=== PATIENT | female | born 1955 | race Caucasian/White ===

== ENCOUNTER 2021-08-26 09:07 | Outpatient (CLI) | payer MEDICARE, MEDICAID | END 2021-08-26 09:08 | disposition home or self-care (01) | LOC: CSHMAMMO 09:07 | PROVIDERS: ATTEND Internal Medicine | DX: Z12.31 Encounter for screening mammogram for malignant neoplasm of breast (principal) | CPT/HCPCS: 77063; 77067 ==

== ENCOUNTER 2022-03-26 08:54 | Emergency (ER) | payer OTHER, MEDICAID ==
[~2022-03-26 08:54] MED LIST: Iopamidol 370 76% 100 ML VIAL ONE
[2022-03-26] MEDS ORDERED: Morphine 4 MG/ML VIAL ONE (09:33)
[2022-03-26] MEDS ORDERED: Ondansetron PF 4 MG/2 ML Vial ONE (09:34)
[2022-03-26 09:38] LABS: #Basophils 0.1 10x3/uL (0.0-0.2); #Eosinphils 0.3 10x3/uL (0.0-0.5); #Neutrophils 7.7 10x3/uL (1.5-8.4); %Basophils 0.9 % (0.0-2.0); %Eosinophils 2.4 % (0.0-6.0); %Lymphocytes 19.2 % (18.0-47.0); %Monocytes 8.3 % (0.0-10.0); %Neutrophils 67.4 % (40.0-75.0); Hemoglobin 14.2 g/dL (12.0-15.5); Mean Corpuscular Hemoglobin 30.6 pg (27.0-33.0); Mean Corpuscular Volume 90.1 fl (81.6-98.3); Mean Platelet Volume 11.1 fl (7.4-10.4); Platelet Count 232 10x3/uL (150-450); RBC Distribution Width 13.8 % (11.5-14.5); Red Blood Cell (RBC) Count 4.64 10x6/uL (3.90-5.03); White Blood Cell (WBC) Count 11.4 10x3/uL (3.5-10.5)
[2022-03-26 09:45] LABS: ALT (SGPT) 13 U/L (8-55); AST (SGOT) 12 U/L (5-34); Albumin 3.9 g/dL (3.4-4.8); Alkaline Phosphatase 82 U/L (40-110); Anion Gap 14 mmol/L (10-20); BUN (Urea Nitrogen) 17 mg/dL (9.8-20.1); Bilirubin, Total 0.2 mg/dL (0.2-1.2); Calc. Creatinine Clearance 0 mL/min (70-130); Calcium 9.3 mg/dL (7.8-10.44); Carbon Dioxide 25 mmol/L (23-31); Chloride 104 mmol/L (98-107); Estimated GFR 85; Globulin 2.6 g/dL (2.4-3.5); Glucose 90 mg/dL (80-115); Lipase 22 U/L (8-78); Potassium 4.2 mmol/L (3.5-5.1); Protein, Total 6.5 g/dL (5.8-8.1); Sodium 139 mmol/L (136-145)
[2022-03-26] MEDS ORDERED: diphenhydrAMINE 50 MG/ML VIAL ONE (10:16)
[2022-03-26 11:02] LABS: Bilirubin Neg (Negative); Blood, Urine 10 (Negative); Clarity Clear (Clear); Glucose, Urine (Dipstick) Normal (Negative); Ketone, Urine Negative (Negative); Leukocyte Negative (Negative); Nitrite Negative (Negative); Protein, Urine (Dipstick) Negative (Neg-Trace); Urobilinogen Normal mg/dL (Less than 2)
[2022-03-26 11:14] LABS: Bacteria/HPF Rare-Few HPF (None Seen); RBC/HPF 0-3 HPF (0-3); Squamous Epithelial 0-3 HPF (0-3); WBC/HPF 0-3 HPF (0-3)
== END 2022-03-26 14:15 | disposition home or self-care (01) ==
LOC: CSHERS 08:54
DX: K43.9 Ventral hernia without obstruction or gangrene (principal); I10 Essential (primary) hypertension; J44.9 Chronic obstructive pulmonary disease, unspecified; F17.210 Nicotine dependence, cigarettes, uncomplicated; Z79.899 Other long term (current) drug therapy
CPT/HCPCS: 74177; 80053; 81003; 81015; 83690; 85025; 93005; 96361; 96374; 96375; J1200; J2270; J2405; Q9967

== ENCOUNTER 2022-09-22 13:36 | Outpatient (CLI) | payer OTHER, MEDICAID | END 2022-09-22 13:37 | disposition home or self-care (01) | LOC: CSHMAMMO 13:36 | PROVIDERS: ATTEND Family Medicine | DX: Z12.31 Encounter for screening mammogram for malignant neoplasm of breast (principal); Z13.820 Encounter for screening for osteoporosis; M81.0 Age-related osteoporosis without current pathological fracture | CPT/HCPCS: 77063; 77067; 77080 ==

== ENCOUNTER 2022-10-13 10:52 | Emergency (ER) | payer OTHER, MEDICAID ==
[2022-10-13 11:55] LABS: #Basophils 0.1 10x3/uL (0.0-0.2); #Eosinphils 0.2 10x3/uL (0.0-0.5); #Monocytes 0.8 10x3/uL (0.0-1.1); #Neutrophils 6.2 10x3/uL (1.5-8.4); %Basophils 0.7 % (0.0-2.0); %Lymphocytes 24.6 % (18.0-47.0); %Monocytes 8.4 % (0.0-10.0); %Neutrophils 63.6 % (40.0-75.0); Hemoglobin 14.9 g/dL (12.0-15.5); INR-International Normal Ratio 0.9; Mean Corpuscular HGB CONC 33.8 g/dL (32.0-36.0); Mean Corpuscular Hemoglobin 30.3 pg (27.0-33.0); Mean Corpuscular Volume 89.6 fl (81.6-98.3); Mean Platelet Volume 11.6 fl (7.4-10.4); PTT 26.5 sec (22.0-33.0); Platelet Count 210 10x3/uL (150-450); Prothrombin Time 10.1 sec (9.5-12.1); RBC Distribution Width 13.3 % (11.5-14.5); Red Blood Cell (RBC) Count 4.92 10x6/uL (3.90-5.03); White Blood Cell (WBC) Count 9.8 10x3/uL (3.5-10.5)
[2022-10-13 13:31] LABS: ALT (SGPT) 15 U/L (8-55); AST (SGOT) 18 U/L (5-34); Alkaline Phosphatase 66 U/L (40-110); Anion Gap 13 mmol/L (10-20); BUN (Urea Nitrogen) 18 mg/dL (9.8-20.1); Bilirubin, Total 0.4 mg/dL (0.2-1.2); CK (CPK) 101 U/L (29-168); Calc. Creatinine Clearance 0 mL/min (70-130); Calcium 9.2 mg/dL (7.8-10.44); Carbon Dioxide 23 mmol/L (23-31); Chloride 107 mmol/L (98-107); Estimated GFR 78; Globulin 2.6 g/dL (2.4-3.5); Glucose 93 mg/dL (80-115); Protein, Total 6.6 g/dL (5.8-8.1); Sodium 139 mmol/L (136-145)
[2022-10-13] MEDS ORDERED: Ibuprofen 200 MG TAB ONE (13:57)
== END 2022-10-13 14:06 | disposition home or self-care (01) ==
LOC: CSHERS 10:52
DX: S60.212A Contusion of left wrist, initial encounter (principal); S60.211A Contusion of right wrist, initial encounter; S70.02XA Contusion of left hip, initial encounter; S40.012A Contusion of left shoulder, initial encounter; I10 Essential (primary) hypertension; F17.210 Nicotine dependence, cigarettes, uncomplicated; W18.30XA Fall on same level, unspecified, initial encounter
CPT/HCPCS: 70450; 71045; 72125; 72170; 80053; 82550; 84484; 85025; 85610; 85730; 93005

== ENCOUNTER 2022-10-19 07:06 | Emergency (ER) | payer OTHER, MEDICAID ==
[2022-10-19] MEDS ORDERED: Morphine 4 MG/ML VIAL ONE (07:38)
[2022-10-19] MEDS ORDERED: Ondansetron PF 4 MG/2 ML Vial ONE (07:38)
[2022-10-19 08:37] LABS: #Eosinphils 0.2 10x3/uL (0.0-0.5); #Monocytes 0.7 10x3/uL (0.0-1.1); #Neutrophils 5.6 10x3/uL (1.5-8.4); %Basophils 0.5 % (0.0-2.0); %Eosinophils 1.8 % (0.0-6.0); %Monocytes 8.3 % (0.0-10.0); %Neutrophils 67.9 % (40.0-75.0); ALT (SGPT) 40 U/L (8-55); AST (SGOT) 25 U/L (5-34); Albumin 4.1 g/dL (3.4-4.8); Alkaline Phosphatase 67 U/L (40-110); Anion Gap 14 mmol/L (10-20); BUN (Urea Nitrogen) 8 mg/dL (9.8-20.1); Bilirubin, Total 0.5 mg/dL (0.2-1.2); Calc. Creatinine Clearance 0 mL/min (70-130); Calcium 9.4 mg/dL (7.8-10.44); Carbon Dioxide 25 mmol/L (23-31); Chloride 104 mmol/L (98-107); Estimated GFR 77; Globulin 2.8 g/dL (2.4-3.5); Glucose 100 mg/dL (80-115); Hemoglobin 14.9 g/dL (12.0-15.5); Mean Corpuscular HGB CONC 33.7 g/dL (32.0-36.0); Mean Corpuscular Hemoglobin 30.3 pg (27.0-33.0); Mean Platelet Volume 11.8 fl (7.4-10.4); Platelet Count 201 10x3/uL (150-450); Potassium 4.1 mmol/L (3.5-5.1); Protein, Total 6.9 g/dL (5.8-8.1); RBC Distribution Width 13.4 % (11.5-14.5); Red Blood Cell (RBC) Count 4.91 10x6/uL (3.90-5.03); Sodium 139 mmol/L (136-145); White Blood Cell (WBC) Count 8.2 10x3/uL (3.5-10.5)
[2022-10-19 10:22] LABS: Bilirubin Neg (Negative); Blood, Urine 10 (Negative); Clarity Clear (Clear); Glucose, Urine (Dipstick) Normal (Negative); Ketone, Urine Negative (Negative); Leukocyte Negative (Negative); Nitrite Negative (Negative); Protein, Urine (Dipstick) Negative (Neg-Trace); Specific Gravity, Urine 1.005 (1.005-1.030); Urobilinogen Normal mg/dL (Less than 2)
[2022-10-19 10:40] LABS: Bacteria/HPF None Seen HPF (None Seen); RBC/HPF 0-3 HPF (0-3); Squamous Epithelial 0-3 HPF (0-3); WBC/HPF None Seen HPF (0-3)
== END 2022-10-19 11:45 | disposition home or self-care (01) ==
LOC: CSHERS 07:06
DX: M54.9 Dorsalgia, unspecified (principal); R31.9 Hematuria, unspecified; I10 Essential (primary) hypertension; J44.9 Chronic obstructive pulmonary disease, unspecified; F17.210 Nicotine dependence, cigarettes, uncomplicated
CPT/HCPCS: 74176; 80053; 81003; 81015; 85025; 96374; 96375; J2270; J2405

== ENCOUNTER 2023-01-04 10:40 | Outpatient (CLI) | payer OTHER, MEDICAID | END 2023-01-04 10:41 | disposition home or self-care (01) | LOC: CSHRAD 10:40 | PROVIDERS: ATTEND Family Medicine | DX: M25.552 Pain in left hip (principal) ==

== ENCOUNTER 2023-05-20 05:43 | Emergency (ER) | payer OTHER, MEDICAID ==
[2023-05-20 06:44] LABS: Bilirubin Neg (Negative); Blood, Urine 10 (Negative); Clarity Clear (Clear); Glucose, Urine (Dipstick) Normal (Negative); Ketone, Urine Negative (Negative); Leukocyte Negative (Negative); Nitrite Negative (Negative); Protein, Urine (Dipstick) Negative (Neg-Trace); Urobilinogen Normal mg/dL (Less than 2); pH, Urine 6.5 (5.0-9.0)
[2023-05-20] MEDS ORDERED: Morphine 4 MG/ML VIAL ONE ×2 (06:46→08:17)
[2023-05-20 06:52] LABS: Bacteria/HPF None Seen HPF (None Seen); CAUTI Indications for Culture Dysuria,urgency,freq; RBC/HPF 0-3 HPF (0-3); Squamous Epithelial 0-3 HPF (0-3); WBC/HPF 0-3 HPF (0-3)
[2023-05-20 06:53] LABS: Urine Culture Reflex No No
[2023-05-20 07:01] LABS: #Basophils 0.1 10x3/uL (0.0-0.2); #Eosinphils 0.2 10x3/uL (0.0-0.5); #Monocytes 0.9 10x3/uL (0.0-1.1); #Neutrophils 8.7 10x3/uL (1.5-8.4); %Basophils 0.9 % (0.0-2.0); %Eosinophils 1.5 % (0.0-6.0); %Lymphocytes 15.4 % (18.0-47.0); %Monocytes 7.5 % (0.0-10.0); %Neutrophils 73.7 % (40.0-75.0); Hematocrit 47.9 % (34.9-44.5); Hemoglobin 15.6 g/dL (12.0-15.5); Mean Corpuscular HGB CONC 32.6 g/dL (32.0-36.0); Mean Corpuscular Hemoglobin 30.2 pg (27.0-33.0); Mean Corpuscular Volume 92.8 fl (81.6-98.3); Mean Platelet Volume 11.5 fl (7.4-10.4); Platelet Count 234 10x3/uL (150-450); RBC Distribution Width 13.4 % (11.5-14.5); Red Blood Cell (RBC) Count 5.16 10x6/uL (3.90-5.03); White Blood Cell (WBC) Count 11.8 10x3/uL (3.5-10.5)
[2023-05-20 07:16] LABS: ALT (SGPT) 9 U/L (8-55); AST (SGOT) 12 U/L (5-34); Albumin 4.5 g/dL (3.4-4.8); Alkaline Phosphatase 89 U/L (40-110); Anion Gap 16 mmol/L (10-20); BUN (Urea Nitrogen) 12 mg/dL (9.8-20.1); Bilirubin, Total 0.3 mg/dL (0.2-1.2); Calc. Creatinine Clearance 0 mL/min (70-130); Calcium 9.3 mg/dL (7.8-10.44); Carbon Dioxide 23 mmol/L (23-31); Chloride 105 mmol/L (98-107); Estimated GFR 79; Globulin 2.9 g/dL (2.4-3.5); Glucose 111 mg/dL (80-115); Lipase 15 U/L (8-78); Potassium 4.4 mmol/L (3.5-5.1); Protein, Total 7.4 g/dL (5.8-8.1); Sodium 140 mmol/L (136-145)
[2023-05-20] MEDS ORDERED: Ondansetron PF 4 MG/2 ML Vial ONE (08:18)
[2023-05-20] MEDS ORDERED: Iopamidol 300 61% 100 ML VIAL FS ONE (12:06)
== END 2023-05-20 09:42 | disposition home or self-care (01) ==
LOC: CSHERS 05:43
DX: R10.30 Lower abdominal pain, unspecified (principal); S76.019A Strain of muscle, fascia and tendon of unspecified hip, initial encounter; I10 Essential (primary) hypertension; J44.9 Chronic obstructive pulmonary disease, unspecified; F17.210 Nicotine dependence, cigarettes, uncomplicated
CPT/HCPCS: 36415; 74177; 80053; 81001; 83690; 85025; 96374; 96375; 96376; J2270; J2405; Q9967

== ENCOUNTER 2023-06-02 08:32 | Emergency (ER) | payer OTHER, MEDICAID ==
[2023-06-02] MEDS ORDERED: oxyCODONE 5 MG TAB ONE (09:53)
== END 2023-06-02 11:35 | disposition home or self-care (01) ==
LOC: CSHERS 08:32
DX: S42.211A Unspecified displaced fracture of surgical neck of right humerus, initial encounter for closed fracture (principal); F17.210 Nicotine dependence, cigarettes, uncomplicated; I10 Essential (primary) hypertension; J44.9 Chronic obstructive pulmonary disease, unspecified; Z79.899 Other long term (current) drug therapy; W01.0XXA Fall on same level from slipping, tripping and stumbling without subsequent striking against object, initial encounter

== ENCOUNTER 2023-10-11 16:46 | Inpatient (IN) | payer OTHER, MEDICAID ==
[2023-10-11] MEDS ORDERED: Ondansetron PF 4 MG/2 ML Vial ONE ×2 (17:17→17:56)
[2023-10-11] MEDS ORDERED: Acetaminophen 500 MG TAB ONE (17:18)
[2023-10-11] MEDS ORDERED: Ipratropium/Albuterol 3 ML NEB ONE (17:21)
[2023-10-11] MEDS ORDERED: methylPREDNISolone Sod Succ/PF 125 MG/2 ML VIAL ONE (17:21)
[2023-10-11 17:34] LABS: #Basophils 0.1 10x3/uL (0.0-0.2); #Eosinphils 0.1 10x3/uL (0.0-0.5); #Neutrophils 8.9 10x3/uL (1.5-8.4); %Basophils 0.6 % (0.0-2.0); %Eosinophils 0.8 % (0.0-6.0); %Lymphocytes 6.3 % (18.0-47.0); %Monocytes 9.3 % (0.0-10.0); %Neutrophils 81.8 % (40.0-75.0); Hematocrit 44.7 % (34.9-44.5); Hemoglobin 14.8 g/dL (12.0-15.5); Mean Corpuscular HGB CONC 33.1 g/dL (32.0-36.0); Mean Corpuscular Hemoglobin 29.7 pg (27.0-33.0); Mean Corpuscular Volume 89.6 fl (81.6-98.3); Mean Platelet Volume 10.4 fl (7.4-10.4); Platelet Count 241 10x3/uL (150-450); RBC Distribution Width 13.5 % (11.5-14.5); Red Blood Cell (RBC) Count 4.99 10x6/uL (3.90-5.03); White Blood Cell (WBC) Count 10.9 10x3/uL (3.5-10.5)
[2023-10-11 17:45] LABS: ALT (SGPT) 15 U/L (8-55); AST (SGOT) 22 U/L (5-34); Albumin 3.9 g/dL (3.4-4.8); Alkaline Phosphatase 63 U/L (40-110); Anion Gap 15 mmol/L (10-20); BUN (Urea Nitrogen) 10 mg/dL (9.8-20.1); Bilirubin, Total 0.5 mg/dL (0.2-1.2); Calc. Creatinine Clearance 0 mL/min (70-130); Calcium 8.7 mg/dL (7.8-10.44); Carbon Dioxide 27 mmol/L (23-31); Chloride 98 mmol/L (98-107); Estimated GFR 86; Globulin 3.1 g/dL (2.4-3.5); Glucose 120 mg/dL (80-115); Lipase 5 U/L (8-78); Magnesium 1.9 mg/dL (1.6-2.6); Potassium 4.4 mmol/L (3.5-5.1); Sodium 136 mmol/L (136-145)
[2023-10-11 17:47] LABS: Troponin I 0.026 ng/mL (< 0.028)
[2023-10-11] MEDS ORDERED: Magnesium 2 GM/50 ML BAG (IN WATER) ONE (17:56)
[2023-10-11] MEDS ORDERED: Morphine 4 MG/ML VIAL ONE (17:56)
[2023-10-11 18:18] LABS: SARS-CoV-2 NAA Rapid Test Not Detected (NotDetected)
[2023-10-11] MEDS ORDERED: Albuterol 2.5 MG (3 mL) NEB ONE (18:20)
[2023-10-11 18:50] LABS: Actual Bicarbonate (HCO3v) 25.2 mEq/L (22-28); Analyzer IN Cardio CS ER; Base Excess 0.8 mEq/L (-2 - +2); Calcium, Ionized (venous) 1.02 mmol/L (1.16-1.32); Chloride (VBG) 99 mmol/L (98-106); Hematocrit-VBG 44 % (36.0-47.0); Hemoglobin (Hb) 14.8 g/dL (11.7-16.1); Potassium (VBG) 3.66 mmol/L (3.70-5.30); Puncture Site Other Site; RapidComm Collect By LAB; Sodium 135 mmol/L (133-146); pH (venous) 7.422 (7.32-7.43)
[2023-10-11] MEDS ORDERED: Oseltamivir 75 MG CAP PO SCH (19:45)
[2023-10-11 22:11] VITALS: BMI 38.7
[2023-10-11] MEDS ORDERED: Senokot S 8.6-50 MG TAB PO PRN (22:47)
[2023-10-11] MEDS ORDERED: Acetaminophen 325 MG TAB PO PRN (22:47)
[2023-10-11] MEDS ORDERED: VANCOMYCIN 2 GRAM/400 ML BAG IVPB SCH (23:00)
[2023-10-11] MEDS ORDERED: Ipratropium/Albuterol 3 ML NEB NEB SCH (23:00)
[2023-10-11] MEDS ORDERED: Arformoterol 15 MCG/2 ML NEB NEB SCH (23:00)
[2023-10-11] MEDS: HYDROcodone/Acetaminophen 10/325 mg Tablet PO PRN (23:17)
[2023-10-11] MEDS: LevoFLOXacin 750 mg/D5W 750 MG in Premix 1 BAG IVPB SCH (23:18)
[2023-10-11 23:47] LABS: Troponin I Less than 0.010 ng/mL (< 0.028)
[2023-10-12 00:10] LABS: Legionella Urinary Ag Negative (Negative); Strep pneumo Urine Ag NEGATIVE (NEGATIVE)
[2023-10-12] MEDS: VANCOMYCIN 1.75 GM/350 ML BAG 1.75 GM in Premix 1 BAG IVPB SCH ×2 (00:43→13:50)
[2023-10-12 03:31] LABS: #Monocytes 0.2 10x3/uL (0.0-1.1); #Neutrophils 8.5 10x3/uL (1.5-8.4); %Basophils 0.2 % (0.0-2.0); %Lymphocytes 4.3 % (18.0-47.0); %Monocytes 2.1 % (0.0-10.0); %Neutrophils 92.4 % (40.0-75.0); Hematocrit 41.5 % (34.9-44.5); Hemoglobin 13.5 g/dL (12.0-15.5); Mean Corpuscular HGB CONC 32.5 g/dL (32.0-36.0); Mean Corpuscular Hemoglobin 28.9 pg (27.0-33.0); Mean Corpuscular Volume 88.9 fl (81.6-98.3); Mean Platelet Volume 10.8 fl (7.4-10.4); Platelet Count 230 10x3/uL (150-450); RBC Distribution Width 13.6 % (11.5-14.5); Red Blood Cell (RBC) Count 4.67 10x6/uL (3.90-5.03); White Blood Cell (WBC) Count 9.2 10x3/uL (3.5-10.5)
[2023-10-12 03:46] LABS: Anion Gap 15 mmol/L (10-20); BUN (Urea Nitrogen) 10 mg/dL (9.8-20.1); Calc. Creatinine Clearance 134 mL/min (70-130); Calcium 8.6 mg/dL (7.8-10.44); Carbon Dioxide 24 mmol/L (23-31); Chloride 102 mmol/L (98-107); Estimated GFR 94; Glucose 205 mg/dL (80-115); Magnesium 2.3 mg/dL (1.6-2.6); Potassium 3.8 mmol/L (3.5-5.1); Sodium 137 mmol/L (136-145)
[2023-10-12] MEDS: HYDROcodone/Acetaminophen 10/325 mg Tablet PO PRN ×4 (06:45→21:28)
[2023-10-12] MEDS: Ipratropium/Albuterol 3 ML NEB NEB SCH ×4 (07:05→19:55)
[2023-10-12] MEDS: Arformoterol 15 MCG/2 ML NEB NEB SCH ×2 (07:05→19:55)
[2023-10-12] MEDS: Nicotine 21 MG PATCH TD SCH ×2 (09:00)
[2023-10-12] MEDS: Enoxaparin 40 MG (0.4 mL) SYRINGE SC SCH (09:00)
[2023-10-12] MEDS: Polyethylene Glycol 3350 17 GM Packet PO SCH (09:03)
[2023-10-12] MEDS: predniSONE 20 MG TAB PO SCH (09:04)
[2023-10-12] MEDS: DULoxetine 30 MG CAP PO SCH (09:04)
[2023-10-12] MEDS: Oseltamivir 75 MG CAP PO SCH ×2 (09:04→21:30)
[2023-10-12] MEDS: CeleCOXIB 100 MG CAP PO SCH (09:04)
[2023-10-12] MEDS ORDERED: Acetaminophen 500 MG TAB PO PRN (11:58)
[2023-10-12] MEDS: Atorvastatin Calcium 20 MG TAB PO SCH (21:30)
[2023-10-12] MEDS: LevoFLOXacin 750 mg/D5W 750 MG in Premix 1 BAG IVPB SCH (23:57)
[2023-10-13] MEDS: VANCOMYCIN 1.75 GM/350 ML BAG 1.75 GM in Premix 1 BAG IVPB SCH ×2 (01:48→13:06)
[2023-10-13] MEDS: HYDROcodone/Acetaminophen 10/325 mg Tablet PO PRN ×4 (01:49→22:32)
[2023-10-13] MEDS ORDERED: cloNIDine 0.1 MG TAB PO SCH ×2 (02:15→21:00)
[2023-10-13 05:39] LABS: #Monocytes 1.3 10x3/uL (0.0-1.1); %Basophils 0.1 % (0.0-2.0); %Eosinophils 0.1 % (0.0-6.0); %Lymphocytes 8.6 % (18.0-47.0); %Monocytes 8.7 % (0.0-10.0); %Neutrophils 81.4 % (40.0-75.0); Hematocrit 39.9 % (34.9-44.5); Hemoglobin 13.1 g/dL (12.0-15.5); Mean Corpuscular HGB CONC 32.8 g/dL (32.0-36.0); Mean Corpuscular Hemoglobin 29.2 pg (27.0-33.0); Mean Corpuscular Volume 88.9 fl (81.6-98.3); Mean Platelet Volume 10.3 fl (7.4-10.4); Platelet Count 249 10x3/uL (150-450); RBC Distribution Width 13.4 % (11.5-14.5); Red Blood Cell (RBC) Count 4.49 10x6/uL (3.90-5.03); White Blood Cell (WBC) Count 14.8 10x3/uL (3.5-10.5)
[2023-10-13 05:59] LABS: Anion Gap 12 mmol/L (10-20); BUN (Urea Nitrogen) 18 mg/dL (9.8-20.1); Calc. Creatinine Clearance 138 mL/min (70-130); Calcium 8.8 mg/dL (7.8-10.44); Carbon Dioxide 26 mmol/L (23-31); Chloride 101 mmol/L (98-107); Estimated GFR 96; Glucose 120 mg/dL (80-115); Potassium 4.2 mmol/L (3.5-5.1); Sodium 135 mmol/L (136-145)
[2023-10-13] MEDS: Arformoterol 15 MCG/2 ML NEB NEB SCH ×2 (07:30→19:14)
[2023-10-13] MEDS: Ipratropium/Albuterol 3 ML NEB NEB SCH ×4 (07:30→19:07)
[2023-10-13] MEDS: Polyethylene Glycol 3350 17 GM Packet PO SCH (08:58)
[2023-10-13] MEDS: Enoxaparin 40 MG (0.4 mL) SYRINGE SC SCH (08:58)
[2023-10-13] MEDS: predniSONE 20 MG TAB PO SCH (08:58)
[2023-10-13] MEDS: CeleCOXIB 100 MG CAP PO SCH (08:59)
[2023-10-13] MEDS: DULoxetine 30 MG CAP PO SCH (08:59)
[2023-10-13] MEDS: Oseltamivir 75 MG CAP PO SCH ×2 (08:59→22:33)
[2023-10-13] MEDS: Nicotine 21 MG PATCH TD SCH (09:02)
[2023-10-13] MEDS ORDERED: Benzonatate 100 MG CAP PO PRN (09:18)
[2023-10-13] MEDS ORDERED: Morphine 4 MG/ML VIAL SLOW IVP SCH (10:00)
[2023-10-13 12:41] LABS: Vancomycin, Trough 19.7 ug/mL
[2023-10-13] MEDS: Atorvastatin Calcium 20 MG TAB PO SCH (22:32)
[2023-10-13] MEDS ORDERED: Melatonin 3 MG TAB PO SCH (23:00)
[2023-10-13] MEDS ORDERED: HYDROcodone/Acetaminophen 10/325 mg Tablet PO SCH (23:00)
[2023-10-13] MEDS: LevoFLOXacin 750 mg/D5W 750 MG in Premix 1 BAG IVPB SCH (23:47)
[2023-10-14 05:16] LABS: #Basophils 0.1 10x3/uL (0.0-0.2); #Monocytes 0.9 10x3/uL (0.0-1.1); #Neutrophils 7.7 10x3/uL (1.5-8.4); %Basophils 0.5 % (0.0-2.0); %Eosinophils 0.2 % (0.0-6.0); %Lymphocytes 17.7 % (18.0-47.0); %Monocytes 8.5 % (0.0-10.0); %Neutrophils 70.8 % (40.0-75.0); Hematocrit 39.3 % (34.9-44.5); Hemoglobin 13.1 g/dL (12.0-15.5); Mean Corpuscular HGB CONC 33.3 g/dL (32.0-36.0); Mean Corpuscular Hemoglobin 29.2 pg (27.0-33.0); Mean Corpuscular Volume 87.7 fl (81.6-98.3); Mean Platelet Volume 10.3 fl (7.4-10.4); Platelet Count 255 10x3/uL (150-450); RBC Distribution Width 13.4 % (11.5-14.5); Red Blood Cell (RBC) Count 4.48 10x6/uL (3.90-5.03); White Blood Cell (WBC) Count 10.9 10x3/uL (3.5-10.5)
[2023-10-14 05:59] VITALS: BP 183/88; TEMP 98
[2023-10-14] MEDS: Ipratropium/Albuterol 3 ML NEB NEB SCH ×2 (07:10→11:15)
[2023-10-14] MEDS: Arformoterol 15 MCG/2 ML NEB NEB SCH (07:10)
[2023-10-14] MEDS: Polyethylene Glycol 3350 17 GM Packet PO SCH (09:00)
[2023-10-14] MEDS: Oseltamivir 75 MG CAP PO SCH (10:24)
[2023-10-14] MEDS: DULoxetine 30 MG CAP PO SCH (10:24)
[2023-10-14] MEDS: CeleCOXIB 100 MG CAP PO SCH (10:24)
[2023-10-14] MEDS: HYDROcodone/Acetaminophen 10/325 mg Tablet PO PRN (10:24)
[2023-10-14] MEDS: Nicotine 21 MG PATCH TD SCH (10:25)
[2023-10-14] MEDS: Enoxaparin 40 MG (0.4 mL) SYRINGE SC SCH (10:26)
[2023-10-14] MEDS: predniSONE 20 MG TAB PO SCH (10:28)
[2023-10-14] MEDS ORDERED: Metoprolol Tartrate 50 MG TAB PO SCH ×2 (11:00→21:00)
[2023-10-14] MEDS ORDERED: cloNIDine 0.1 MG TAB PO SCH (21:00)
[2023-10-15] MEDS ORDERED: cloNIDine 0.2 MG TAB PO SCH (21:00)
== END 2023-10-14 14:40 | disposition home or self-care (01) | DRG 193 ==
LOC: CSHERS 16:46 → CSHTELE 19:34
PROVIDERS: ADMIT Family Medicine; ATTEND Internal Medicine
PROC: 8E0ZXY6 Isolation (ICD-10-PCS; principal; 2023-10-11)
DX: J10.00 Influenza due to other identified influenza virus with unspecified type of pneumonia (principal); J96.01 Acute respiratory failure with hypoxia; J44.1 Chronic obstructive pulmonary disease with (acute) exacerbation; J44.0 Chronic obstructive pulmonary disease with (acute) lower respiratory infection; I10 Essential (primary) hypertension; G89.29 Other chronic pain; F31.9 Bipolar disorder, unspecified; F43.10 Post-traumatic stress disorder, unspecified; B19.20 Unspecified viral hepatitis C without hepatic coma; F17.210 Nicotine dependence, cigarettes, uncomplicated; E66.9 Obesity, unspecified; G62.9 Polyneuropathy, unspecified; Z90.710 Acquired absence of both cervix and uterus; Z98.890 Other specified postprocedural states; Z90.49 Acquired absence of other specified parts of digestive tract; Z88.8 Allergy status to other drugs, medicaments and biological substances; Z79.51 Long term (current) use of inhaled steroids; Z79.899 Other long term (current) drug therapy; Z68.38 Body mass index [BMI] 38.0-38.9, adult; Z11.52 Encounter for screening for COVID-19
CPT/HCPCS: 36415; 71045; 80048; 80053; 80202; 82805; 83605; 83690; 83735; 83880; 84484; 85025; 87040; 87081; 87449; 87899; 93005; 93306; 94640; 94760; 96374; 96375; 96376; J1650; J1956; J2270; J2405; J2930; J3370; J3475; J7512; J7611; J7620

== ENCOUNTER 2024-02-14 06:54 | Emergency (ER) | payer OTHER ==
[2024-02-14 07:19] LABS: Bilirubin Neg (Negative); Blood, Urine 25 (Negative); Clarity Clear (Clear); Glucose, Urine (Dipstick) Normal (Negative); Ketone, Urine Negative (Negative); Leukocyte Negative (Negative); Nitrite Negative (Negative); Protein, Urine (Dipstick) Negative (Neg-Trace); Urobilinogen Normal mg/dL (Less than 2)
[2024-02-14] MEDS ORDERED: Acetaminophen 500 MG TAB ONE (07:30)
[2024-02-14 07:32] LABS: Bacteria/HPF None Seen HPF (None Seen); CAUTI Indications for Culture Dysuria,urgency,freq; RBC/HPF 0-3 HPF (0-3); Squamous Epithelial None Seen HPF (0-3); WBC/HPF None Seen HPF (0-3)
[2024-02-14 07:33] LABS: Urine Culture Reflex No No
[2024-02-14 07:49] LABS: #Basophils 0.07 10x3/uL (0.0-0.2); #Eosinphils 0.11 10x3/uL (0.0-0.5); #Monocytes 0.91 10x3/uL (0.0-1.1); #Neutrophils 8.34 10x3/uL (1.5-8.4); %Basophils 0.6 % (0.0-2.0); %Eosinophils 0.9 % (0.0-6.0); %Lymphocytes 18.2 % (18.0-47.0); %Monocytes 7.8 % (0.0-10.0); %Neutrophils 71.6 % (40.0-75.0); Hematocrit 50.3 % (34.9-44.5); Hemoglobin 16.8 g/dL (12.0-15.5); Mean Corpuscular HGB CONC 33.4 g/dL (32.0-36.0); Mean Corpuscular Hemoglobin 29.1 pg (27.0-33.0); Mean Corpuscular Volume 87.2 fl (81.6-98.3); Mean Platelet Volume 11.4 fl (7.4-10.4); Platelet Count 276 10x3/uL (150-450); RBC Distribution Width 14.2 % (11.5-14.5); Red Blood Cell (RBC) Count 5.77 10x6/uL (3.90-5.03); White Blood Cell (WBC) Count 11.7 10x3/uL (3.5-10.5)
[2024-02-14 07:54] LABS: ALT (SGPT) 11 U/L (8-55); AST (SGOT) 14 U/L (5-34); Albumin 4.3 g/dL (3.4-4.8); Alkaline Phosphatase 83 U/L (40-110); Anion Gap 14 mmol/L (10-20); BUN (Urea Nitrogen) 19 mg/dL (9.8-20.1); Bilirubin, Total 0.5 mg/dL (0.2-1.2); Calc. Creatinine Clearance 0 mL/min (70-130); Calcium 9.8 mg/dL (7.8-10.44); Carbon Dioxide 23 mmol/L (23-31); Chloride 103 mmol/L (98-107); Estimated GFR 78; Globulin 3.3 g/dL (2.4-3.5); Glucose 104 mg/dL (80-115); Lipase 26 U/L (8-78); Potassium 4.4 mmol/L (3.5-5.1); Protein, Total 7.6 g/dL (5.8-8.1); Sodium 136 mmol/L (136-145)
[2024-02-14] MEDS ORDERED: Ondansetron PF 4 MG/2 ML Vial ONE (08:27)
[2024-02-14] MEDS ORDERED: Morphine 2 MG/ML VIAL ONE (08:51)
[2024-02-14] MEDS ORDERED: Morphine 4 MG/ML VIAL ONE (08:52)
== END 2024-02-14 09:30 | disposition home or self-care (01) ==
LOC: CSHERS 06:54
DX: N20.0 Calculus of kidney (principal); J44.9 Chronic obstructive pulmonary disease, unspecified; K21.9 Gastro-esophageal reflux disease without esophagitis; I10 Essential (primary) hypertension; Z79.899 Other long term (current) drug therapy
CPT/HCPCS: 74177; 80053; 81001; 83690; 85025; 96374; 96375; J2270; J2272; J2405

== ENCOUNTER 2024-08-05 13:21 | Emergency (ER) | payer OTHER ==
[2024-08-05 15:49] LABS: Bilirubin Neg (Negative); Blood, Urine 25 (Negative); Glucose, Urine (Dipstick) Normal (Negative); Ketone, Urine Negative (Negative); Leukocyte Negative (Negative); Nitrite Negative (Negative); Protein, Urine (Dipstick) 15 mg/dl (Neg-Trace); Urobilinogen Normal mg/dL (Less than 2)
[2024-08-05 15:58] LABS: Clarity Clear (Clear)
[2024-08-05 16:20] LABS: Bacteria/HPF Rare-Few HPF (None Seen); CAUTI Indications for Culture Fever or rigors; Squamous Epithelial 0-3 HPF (0-3); WBC/HPF 0-3 HPF (0-3)
[2024-08-05 16:21] LABS: Urine Culture Reflex No No
== END 2024-08-05 17:47 | disposition home or self-care (01) ==
LOC: CSHERS 13:21
DX: L03.031 Cellulitis of right toe (principal); I10 Essential (primary) hypertension; J44.9 Chronic obstructive pulmonary disease, unspecified; F17.210 Nicotine dependence, cigarettes, uncomplicated; Z55.0 Illiteracy and low-level literacy
CPT/HCPCS: 81001; 99283

== ENCOUNTER 2025-04-17 08:35 | Outpatient (CLI) | payer OTHER | END 2025-04-17 08:36 | disposition home or self-care (01) | LOC: CSHCT 08:35 | PROVIDERS: ATTEND Family Medicine | DX: R10.9 Unspecified abdominal pain (principal); Z87.442 Personal history of urinary calculi; R31.9 Hematuria, unspecified; N20.0 Calculus of kidney | CPT/HCPCS: 74150 ==